=== PATIENT | female | born 1960 | race African-American/Black ===

== ENCOUNTER 2016-03-20 15:15 | Emergency (ER) | payer OTHER ==
[~2016-03-20] VITALS: Ht 162.6 cm; Wt 99.8 kg
[~2016-03-20 15:15] MED LIST: ASPI-231 PO; ATEN-60; ENAL20TA70 PO; NOR10T PO; SUMA50TA16
[2016-03-20 18:20] VITALS: BP 156/78
== END 2016-03-20 19:32 | disposition home or self-care (01) ==
LOC: ER 15:28
DX: G89.29 Other chronic pain (principal); M25.562 Pain in left knee; Z88.0 Allergy status to penicillin; I10 Essential (primary) hypertension; Z79.899 Other long term (current) drug therapy; Z79.82 Long term (current) use of aspirin